=== PATIENT | male | born 1975 | race Caucasian/White ===

== ENCOUNTER → 2016-08-28 | Outpatient (CLI) | payer BC ==
[2014-12-03 13:20] VITALS: BP 121/83
[~2016-08-28] MED LIST: DOCU-27 PO; HYDR-2762 PO; LISI10TA2 PO; LISI1TAB5 PO; MELO-150 PO; OMEP40CA2 PO; OXYC-323 PO; VENL150C PO
--- NOTE | 2016-08-28 16:55 | KCIC ---
PROCEDURE MRI of the lumbar spine without contrast 08/28/2016 HISTORY Low back pain with bilateral leg numbness. TECHNIQUE Unenhanced T1 weighted sagittal and axial and inversion recovery sagittal images of the lumbar spine were obtained. FINDINGS No previous studies are available for comparison. Minimal S-shaped curvature of the thoracolumbar spine is seen. Degenerative signal changes are seen involving the L2-3 discs. Degenerative signal changes are seen within the marrow surrounding this disc. The conus medullaris is normal in morphology, position, and signal characteristics. The L1-2 disc space is within normal limits. At the L2-3 disc space the patient is status post left hemilaminectomy. There is a mild generalized disc bulge. Degenerative changes are seen involving the facet joints bilaterally. These findings do not result in significant central spinal canal or neural foraminal stenosis. At the L3-4 and L4-5 disc spaces there is a minimal to mild generalized disc bulge. Degenerative changes are seen involving the facet joints bilaterally. There is mild ligamentum flavum hypertrophy bilaterally. There is prominence of the posterior epidural fat. These findings when combined result in mild central spinal canal stenosis. No neural foraminal stenosis is seen. At the L5-S1 disc space there is a mild generalized disc bulge. Degenerative changes are seen involving the facet joints bilaterally. These findings do not result in significant central spinal canal or neural foraminal stenosis. IMPRESSION 1. Status post left hemilaminectomy at L2-3. 2. The changes of degenerative disc disease are seen involving lumbar spine. These findings result in mild central spinal canal stenosis at L3-4 and L4-5. No neural foraminal stenosis is seen. Electronically signed by: Wisam Wheeler MD (August 28, 2016 16:53:51)
--- NOTE | 2016-08-28 16:59 | KCIC ---
PROCEDURE MRI of the thoracic spine without contrast 08/28/2016 HISTORY Mid back pain. TECHNIQUE Unenhanced T1 weighted, T2 weighted and inversion recovery sagittal and T2 weighted and T1 weighted axial images of the thoracic spine were obtained. T2 weighted sagittal images of the cervical, thoracic and lumbar spine were obtained for localization purposes. FINDINGS Very mild S-shaped curvature of the thoracolumbar spine is seen. Degenerative signal changes are seen involving the discs of mid and lower thoracic spine. The marrow signal of the visualized bony structures is within normal limits. The thoracic spinal cord is normal in morphology, position, and signal characteristics. Mild degenerative changes are seen involving the thoracic disc spaces. These consist of minimal to mild generalized disc bulges and mild degenerative changes involving the facet joints. These findings do not result in significant central spinal canal or neural foraminal stenosis at any level. IMPRESSION Mild degenerative changes are seen involving thoracic spine as outlined above. These findings do not result in significant central spinal canal or neural foraminal stenosis. Electronically signed by: Wisam Wheeler MD (August 28, 2016 16:58:06)
== END | disposition home or self-care (01) ==
LOC: KCIC MRI 13:58
PROVIDERS: ATTEND Nurse Practitioner
DX: M47.894 Other spondylosis, thoracic region (principal)
CPT/HCPCS: 72146; 72148

== ENCOUNTER → 2016-10-06 | Outpatient (CLI) | payer BC ==
[2014-12-03 13:20] VITALS: BP 121/83
[~2016-10-06] MED LIST changes: +ASPI-482 PO; +ATOR10TA60 PO; +BUPIVACAINE MPF 0.25% 10 ML VIAL. ONE; +DOCU-109 PO; -DOCU-27 PO; +GABA-585 PO; +IBUP-1060 PO; +IOHEXOL 180 MG/ML 10 ML VIAL. ONE; -MELO-150 PO; +MELO15TA23 PO; +META-21 PO; +VILA40TA PO; +methylPREDNISolone ACETATE 40 MG/ML VIAL. ONE; +methylPREDNISolone ACETATE 80 MG/ML VIAL. ONE
== END | disposition home or self-care (01) ==
LOC: PNCL 13:41
PROVIDERS: ATTEND Anesthesiology
DX: M51.34 Other intervertebral disc degeneration, thoracic region (principal); M47.814 Spondylosis without myelopathy or radiculopathy, thoracic region; I10 Essential (primary) hypertension; K21.9 Gastro-esophageal reflux disease without esophagitis; M19.90 Unspecified osteoarthritis, unspecified site; F32.9 Major depressive disorder, single episode, unspecified; F17.200 Nicotine dependence, unspecified, uncomplicated; Z86.69 Personal history of other diseases of the nervous system and sense organs; Z72.89 Other problems related to lifestyle; Z72.0 Tobacco use
CPT/HCPCS: 64490; 64491; 64492; J1030; J1040; J3490